=== PATIENT | female | born 1995 | race Two or more races ===

== ENCOUNTER 2019-10-20 14:30 | Inpatient (IN) | payer BC ==
[2019-10-20] MEDS ORDERED: Sodium Chloride 0.9% 10 ML Syringe FLUSH PRN (14:37)
[2019-10-20] MEDS ORDERED: Lactated Ringers 1,000 ML IV SCH (14:45)
[2019-10-20] MEDS ORDERED: Oxytocin/Lactated Ringers 10 UNIT/1,000 ML BAG IV SCH ×2 (14:45)
[2019-10-20] MEDS ORDERED: diphenhydrAMINE 50 MG/ML SDV IVPUSH PRN (15:43)
[2019-10-20] MEDS ORDERED: ePHEDrine 50 MG/ML SDV IVPUSH PRN (15:43)
[2019-10-20] MEDS ORDERED: fentaNYL 100 MCG/2 ML SDV EPIDUR PRN (15:43)
[2019-10-20] MEDS ORDERED: Bupivacaine/fentaNYL/NS 100 ML Bag EPIDUR PRN (15:43)
[2019-10-20] MEDS ORDERED: fentaNYL 100 MCG/2 ML SDV IVPUSH PRN (19:11)
--- NOTE | 2019-10-20 20:04 | PCM.LDHP ---
L&D History of Present Illness - General Date of Service: 10/20/19 Admit Problem/Dx: Patient Status Order with Admit Dx/Problem 10/20/19 14:38 Patient Status [ADT] Routine Admission Diagnosis/Problem Admission Diagnosis/Problem Source of Information: Patient History Limitations: Reports: No Limitations - History of Present Illness Introduction:: 24 year old here from clinic where she had SROM on the chux during visit before cervical check. PNC with myself complicated by thyroid dysfunction. Pain Score: 10 - Related Data Allergies/Adverse Reactions: Allergies Allergy/AdvReac Type Severity Reaction Status Date / Time No Known Allergies Allergy Verified 10/20/19 14:37 Past Medical History [employer]ER History: Reports: Endocrine/Metabolic History: Reports: Hypothyroidism Social & Family History - Family History Family Medical History: Noncontributory - Tobacco Use Smoking Status *Q: Never Smoker Second Hand Smoke Exposure: No - Recreational Drug Use Recreational Drug Use: No H&P Review of Systems - Review of Systems: Review Of Systems: See Below General: Reports: No Symptoms HEENT: Reports: No Symptoms Pulmonary: Reports: No Symptoms Cardiovascular: Reports: No Symptoms Gastrointestinal: Reports: No Symptoms Genitourinary: Reports: No Symptoms Musculoskeletal: Reports: No Symptoms Skin: Reports: No Symptoms Psychiatric: Reports: No Symptoms Neurological: Reports: No Symptoms Hematologic/Lymphatic: Reports: No Symptoms Immunologic: Reports: No Symptoms L&D Exam - Exam Exam: See Below - Vital Signs Vital Signs: Last Vital Signs Temp 36.8 C 10/20/19 14:37 Pulse Resp 16 10/20/19 14:37 BP 116/78 10/20/19 14:37 Pulse Ox 100 10/20/19 14:37 Weight: 62.868 kg - OB Specific Contraction Intensity: Strong Movement: Active Heart Rate (FHR) Variability: Moderate (6-25 bmp) Presentation: Vertex - Williamson Score Williamson Score Cervix Position: Anterior Williamson Score Effacement: >80% Williamson Score Dilation: 3-4 cm Williamson Score Infant's Station: -2 - Exam General: Alert, Oriented HEENT: PERRLA, Conjunctiva Clear, EACs Clear, EOMI, Hearing Intact, Mucosa Moist & [place], Nares Patent, Normal Nasal Septum, Posterior Pharynx Clear, TMs Clear Neck: Supple, Trachea Midline Lungs: Clear to Auscultation, Normal Respiratory Effort Cardiovascular: Regular Rate, Regular Rhythm GI/Abdominal Exam: Normal Bowel Sounds, Soft, Non-Tender, No Organomegaly, No Distention, No Abnormal Bruit, No Mass, Pelvis Stable Rectal Exam: Hemorrhoids Genitourinary: Normal external exam Back Exam: Normal Inspection, Full Range of Motion Extremities: Normal Inspection, Normal Range of Motion, Non-Tender, No Pedal Edema, Normal Capillary Refill Skin: Warm, Dry, Intact Neurological: Cranial Nerves Intact, Reflexes Equal Bilateral Psychiatric: Alert, Normal Affect, Normal Mood - Patient Data Lab Results Last 24 hrs: Laboratory Results - last 24 hr 10/20/19 Range/Units 15:20 WBC 9.33 (3.98-10.04) K/mm3 RBC 3.95 L (3.98-5.22) M/mm3 Hgb 11.2 (11.2-15.7) gm/dl Hct 35.7 (34.1-44.9) % MCV 90.4 (79.4-94.8) fl MCH 28.4 (25.6-32.2) pg MCHC 31.4 L (32.2-35.5) g/dl RDW Std Deviation 42.8 (36.4-46.3) fL Plt Count 163 L (182-369) K/mm3 MPV 12.0 (9.4-12.3) fl Neut % (Auto) 69.2 (34.0-71.1) % Lymph % (Auto) 23.4 (19.3-51.7) % [place] % (Auto) 5.8 (4.7-12.5) % Eos % (Auto) 0.4 L (0.7-5.8) Baso % (Auto) 0.4 (0.1-1.2) % Neut # (Auto) 6.46 H (1.56-6.13) K/mm3 Lymph # (Auto) 2.18 (1.18-3.74) K/mm3 [place] # (Auto) 0.54 H (0.24-0.36) K/mm3 Eos # (Auto) 0.04 (0.04-0.36) K/mm3 Baso # (Auto) 0.04 (0.01-0.08) K/mm3 Result Diagrams: 10/20/19 15:20 Problem List Initiated/Reviewed/Updated: Yes Orders Last 24hrs: Active Orders 24 hr Category Date Time Status Patient Status [ADT] Routine ADT 10/20/19 14:38 Active Activity as Tolerated [RC] PFP Care 10/20/19 14:37 Active Communication Order [RC] ASDIRECTED Care 10/20/19 14:37 Active Communication Order [RC] ASDIRECTED Care 10/20/19 15:43 Active Cooling Warming Measures [RC] ASDIRECTED Care 10/20/19 15:43 Active Heart Tones [RC] ASDIRECTED Care 10/20/19 14:38 Active Non Stress Test [RC] PER UNIT ROUTINE Care 10/20/19 14:37 Active Notify Provider [RC] ASDIRECTED Care 10/20/19 15:43 Active Notify Provider [RC] PFP Care 10/20/19 14:37 Active Notify Provider [RC] PRN Care 10/20/19 14:37 Active Oxygen Therapy [RC] ASDIRECTED Care 10/20/19 15:43 Active Peripheral IV Care [RC] . DIRECTED Care 10/20/19 14:38 Active Pulse Oximetry [RC] ASDIRECTED Care 10/20/19 15:43 Active Vital Signs [RC] PER UNIT ROUTINE Care 10/20/19 14:37 Active Vital Signs [RC] PRN Care 10/20/19 15:43 Active Regular Diet [DIET] Diet 10/20/19 Dinner Active BLOOD BANK HOLD SPECIMEN [BBK] Stat Lab 10/20/19 14:37 Ordered RAPID PLASMA REAGIN,RPR [CHEM] Routine Lab 10/20/19 15:20 Received Bupivacaine/fentaNYL/NS [fentaNYL/Bupivacaine/NS 2 MCG- Med 10/20/19 15:43 Active 0.125% 100 ML] 100 ml EPIDUR CONTINUOUS PRN Lactated Ringers [Ringers, Lactated] 1,000 ml Med 10/20/19 14:45 Active IV ASDIRECTED Oxytocin/Lactated Ringers [Pitocin in LR 10 Units/1,000 Med 10/20/19 14:45 Active ML] 10 unit in 1,000 ml IV .CONTINUOUS Oxytocin/Lactated Ringers [Pitocin in LR 10 Units/1,000 Med 10/20/19 14:45 Active ML] 10 unit in 1,000 ml IV TITRATE Sodium Chloride 0.9% [Saline Flush] Med 10/20/19 14:37 Active 10 ml FLUSH ASDIRECTED PRN diphenhydrAMINE [Benadryl] Med 10/20/19 15:43 Active 25 mg IVPUSH Q6H PRN ePHEDrine [ePHEDrine sulfate] Med 10/20/19 15:43 Active 5 mg IVPUSH ASDIRECTED PRN fentaNYL [Sublimaze] Med 10/20/19 15:43 Active 100 mcg EPIDUR Q3H PRN fentaNYL [Sublimaze] Med 10/20/19 19:11 Active 50 mcg IVPUSH Q2H PRN Electronic Heart Tones Ext w TOCO [WOMSER] Oth 10/20/19 14:37 Ordered Routine Electronic Heart Tones Internal [WOMSER] Per Unit Oth 10/20/19 14:37 Ordered Routine Peripheral IV Insertion Adult [OM.PC] Routine Oth 10/20/19 14:37 Ordered Resuscitation Status Routine Resus Stat 10/20/19 14:37 Ordered Medication Orders Diphenhydramine HCl (Benadryl) 25 mg IVPUSH Q6H PRN PRN Reason: Itching Ephedrine Sulfate (Ephedrine Sulfate) 5 mg IVPUSH ASDIRECTED PRN PRN Reason: HYPOTENTSION Fentanyl (Sublimaze) 100 mcg EPIDUR Q3H PRN PRN Reason: Pain Fentanyl (Sublimaze) 50 mcg IVPUSH Q2H PRN PRN Reason: Pain Last Admin: 10/20/19 19:22 Dose: 50 mcg Fentanyl/Bupivacaine HCl (Fentanyl/Bupivacaine/Ns 2 Mcg-0.125% 100 Ml) 100 ml EPIDUR CONTINUOUS PRN PRN Reason: Pain Lactated Ringer's (Ringers, Lactated) 1,000 mls @ 100 mls/hr IV ASDIRECTED NURYS Last Admin: 10/20/19 17:16 Dose: 100 mls/hr Oxytocin/Lactated Ringer's (Pitocin In Lr 10 Units/1,000 Ml) 10 unit in 1,000 mls @ 12 mls/hr IV TITRATE NURYS; Protocol Last Titration: 10/20/19 19:40 Dose: 500 mls/hr Admin: 10/20/19 17:16 Dose: 2 munits/min, 12 mls/hr Oxytocin/Lactated Ringer's (Pitocin In Lr 10 Units/1,000 Ml) 10 unit in 1,000 mls @ 100 mls/hr IV .CONTINUOUS NURYS Sodium Chloride (Saline Flush) 10 ml FLUSH ASDIRECTED PRN PRN Reason: Keep Vein Open Assessment/Plan Comment:: Term SROM Desires unmedicated. Anticipate
--- NOTE | 2019-10-20 20:07 | PCM.SN ---
- Free Text/Narrative Note: Stage I - Patient presented with SROM. 4 cm. Then requested pain medication. Found to be complete less than 10 minutes later. I was called at 1939 and baby born at 1938. 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 I arrived at 1946. Cord blood collected. Stage III - of intact placenta. 3vc. No laceration. EBL 100.
[2019-10-20] MEDS ORDERED: Docusate Sodium 100 MG Cap PO PRN (20:14)
[2019-10-20] MEDS ORDERED: Witch Hazel Medicated Pads 40/Jar TOP PRN (20:14)
[2019-10-20] MEDS ORDERED: Hydrocortisone Acetate 25 MG Supp RECTAL PRN (20:14)
[2019-10-20] MEDS ORDERED: Ketorolac 30 MG/ML SDV IVPUSH ONE (20:16)
[2019-10-20] MEDS: Ibuprofen 600 MG Tab PO PRN (21:02)
[2019-10-21] MEDS ORDERED: Ketorolac 30 MG/ML SDV ONE (03:06)
[2019-10-21] MEDS ORDERED: Acetaminophen 325 MG Tab PO PRN (05:37)
--- NOTE | 2019-10-21 09:08 | PCM.DCSUM1 ---
Discharge Summary - Hospital Course Diagnosis: Stroke: No - Discharge Data Discharge Date: 10/21/19 Discharge Disposition: Home, Self-Care 01 Condition: Good - Referral to Home Health Primary Care Physician: Gayle Rocha MD - Patient Summary/Data Hospital Course: Rapid , unremarkable course - Patient Instructions Diet: Usual Diet as Tolerated Activity: No Strenuous Activities Driving: May Drive Today Showering/Bathing: May Shower Notify Provider of: Fever, Increased Pain, Swelling and Redness, Drainage, Nausea and/or Vomiting - Discharge Plan *PRESCRIPTION DRUG MONITORING PROGRAM REVIEWED*: No *COPY OF PRESCRIPTION DRUG MONITORING REPORT IN PATIENT JOE: No Referrals: Gayle Rocha MD [Primary Care Provider] - (2 weeks) - Discharge Summary/Plan Comment DC Time >30 min.: No - General Info Date of Service: 10/21/19 Functional Status: Reports: Pain Controlled - Review of Systems General: Reports: No Symptoms HEENT: Reports: No Symptoms Pulmonary: Reports: No Symptoms Cardiovascular: Reports: No Symptoms Gastrointestinal: Reports: No Symptoms Genitourinary: Reports: No Symptoms Musculoskeletal: Reports: No Symptoms Skin: Reports: No Symptoms Neurological: Reports: No Symptoms Psychiatric: Reports: No Symptoms - Patient Data Vitals - Most Recent: Last Vital Signs Temp 36.8 C 10/20/19 14:37 Pulse 76 10/21/19 03:10 Resp 16 10/21/19 03:10 BP 99/60 10/21/19 03:10 Pulse Ox 98 10/21/19 03:10 Weight - Most Recent: 62.868 kg I&O - Last 24 hours: Intake & Output 10/20/19 10/21/19 10/21/19 22:59 06:59 14:59 Intake Total 1500 Balance 1500 Lab Results - Last 24 hrs: Laboratory Results - last 24 hr 10/20/19 10/20/19 Range/Units 15:20 15:20 WBC 9.33 (3.98-10.04) K/mm3 RBC 3.95 L (3.98-5.22) M/mm3 Hgb 11.2 (11.2-15.7) gm/dl Hct 35.7 (34.1-44.9) % MCV 90.4 (79.4-94.8) fl MCH 28.4 (25.6-32.2) pg MCHC 31.4 L (32.2-35.5) g/dl RDW Std Deviation 42.8 (36.4-46.3) fL Plt Count 163 L (182-369) K/mm3 MPV 12.0 (9.4-12.3) fl Neut % (Auto) 69.2 (34.0-71.1) % Lymph % (Auto) 23.4 (19.3-51.7) % [place] % (Auto) 5.8 (4.7-12.5) % Eos % (Auto) 0.4 L (0.7-5.8) Baso % (Auto) 0.4 (0.1-1.2) % Neut # (Auto) 6.46 H (1.56-6.13) K/mm3 Lymph # (Auto) 2.18 (1.18-3.74) K/mm3 [place] # (Auto) 0.54 H (0.24-0.36) K/mm3 Eos # (Auto) 0.04 (0.04-0.36) K/mm3 Baso # (Auto) 0.04 (0.01-0.08) K/mm3 RPR Non-reactive (NONREACTIVE) Med Orders - Current: Current Medications Acetaminophen (Tylenol) 650 mg PO Q6H PRN PRN Reason: Pain Last Admin: 10/21/19 05:56 Dose: 650 mg Docusate Sodium (Colace) 100 mg PO BID PRN PRN Reason: Constipation Hydrocortisone Acetate (Anucort-Hc) 25 mg RECTAL BID PRN PRN Reason: Hemorrhoid pain Ibuprofen (Motrin) 600 mg PO Q6H PRN PRN Reason: Mild pain or fever Last Admin: 10/20/19 21:02 Dose: 600 mg [place] (Tucks) 1 pad TOP ASDIRECTED PRN PRN Reason: Pain Discontinued Medications Diphenhydramine HCl (Benadryl) 25 mg IVPUSH Q6H PRN PRN Reason: Itching Ephedrine Sulfate (Ephedrine Sulfate) 5 mg IVPUSH ASDIRECTED PRN PRN Reason: HYPOTENTSION Fentanyl (Sublimaze) 100 mcg EPIDUR Q3H PRN PRN Reason: Pain Fentanyl (Sublimaze) 50 mcg IVPUSH Q2H PRN PRN Reason: Pain Last Admin: 10/20/19 19:22 Dose: 50 mcg Fentanyl/Bupivacaine HCl (Fentanyl/Bupivacaine/Ns 2 Mcg-0.125% 100 Ml) 100 ml EPIDUR CONTINUOUS PRN PRN Reason: Pain Lactated Ringer's (Ringers, Lactated) 1,000 mls @ 100 mls/hr IV ASDIRECTED NURYS Last Admin: 10/20/19 17:16 Dose: 100 mls/hr Oxytocin/Lactated Ringer's (Pitocin In Lr 10 Units/1,000 Ml) 10 unit in 1,000 mls @ 12 mls/hr IV TITRATE NURYS; Protocol Last Titration: 10/20/19 19:40 Dose: 500 mls/hr Oxytocin/Lactated Ringer's (Pitocin In Lr 10 Units/1,000 Ml) 10 unit in 1,000 mls @ 100 mls/hr IV .CONTINUOUS NURYS Ketorolac Tromethamine (Toradol) 30 mg IVPUSH ONETIME ONE Stop: 10/20/19 20:17 Last Admin: 10/21/19 03:11 Dose: 30 mg Ketorolac Tromethamine (Toradol) Confirm Administered Dose 30 mg .ROUTE .STK- MED ONE Stop: 10/21/19 03:07 Last Admin: 10/21/19 04:52 Dose: Not Given Sodium Chloride (Saline Flush) 10 ml FLUSH ASDIRECTED PRN PRN Reason: Keep Vein Open - Exam General: Reports: Alert, Oriented HEENT: Reports: Pupils Equal, Pupils Reactive, EOMI, Mucous Membr. Moist/[place] Neck: Reports: Supple Lungs: Reports: Clear to Auscultation, Normal Respiratory Effort Cardiovascular: Reports: Regular Rate, Regular Rhythm GI/Abdominal Exam: Normal Bowel Sounds, Soft, Non-Tender, No Organomegaly, No Distention, No Abnormal Bruit, No Mass, Pelvis Stable Rectal (Female) Exam: Normal Exam, Normal Rectal Tone Back Exam: Reports: Normal Inspection, Full Range of Motion Extremities: Normal Inspection, Normal Range of Motion, Non-Tender, No Pedal Edema, Normal Capillary Refill Skin: Reports: Warm, Dry, Intact Wound/Incisions: Reports: Healing Well Neurological: Reports: No New Focal Deficit Psy/Mental Status: Reports: Alert, Normal Affect, Normal Mood
[2019-10-21] MEDS: Ibuprofen 600 MG Tab PO PRN ×2 (11:34→18:05)
== END 2019-10-21 21:25 | disposition home or self-care (01) | DRG 560 ==
LOC: JD.OB 14:30 → JD.OBCHECK 14:30 → JD.OB 14:38 → OBSVTOIN 19:39 → JD.OB 19:40
PROVIDERS: ADMIT Obstetrics & Gynecology; ATTEND Obstetrics & Gynecology
PROC: 10E0XZZ Delivery of Products of Conception, External Approach (ICD-10-PCS; principal; 2019-10-20)
DX: O80 Encounter for full-term uncomplicated delivery (principal); Z37.0 Single live birth; Z3A.38 38 weeks gestation of pregnancy
CPT/HCPCS: 36415; 59025; 59409; 85025; 86592; A9270-GY; J1885; J2590; J3010; J7120

== ENCOUNTER 2021-05-25 08:02 | Inpatient (IN) | payer BC, MEDICAID ==
[2021-05-25] MEDS ORDERED: Lidocaine 1% 50 ML MDV INJECT ONE (08:12)
[2021-05-25] MEDS ORDERED: Nalbuphine 10 MG/1 ML Vial IVPUSH PRN (08:12)
[2021-05-25] MEDS ORDERED: Sodium Chloride 0.9% 10 ML Syringe FLUSH PRN (08:12)
[2021-05-25] MEDS ORDERED: Ondansetron 4 MG/2 ML SDV IVPUSH PRN (08:12)
[2021-05-25] MEDS ORDERED: Oxytocin/Lactated Ringers 10 UNIT/1,000 ML BAG IV SCH ×2 (08:15→14:30)
[2021-05-25] MEDS: Lactated Ringers 1,000 ML IV SCH ×2 (08:35→09:21)
--- NOTE | 2021-05-25 09:26 | PCM.LDHP ---
L&D History of Present Illness - General Date of Service: 05/25/21 Admit Problem/Dx: Patient Status Order with Admit Dx/Problem 05/25/21 08:16 Patient Status [ADT] Routine Admission Diagnosis/Problem Admission Diagnosis/Problem Labor established 05/25/21 09:20 Rosa is a 26-year-old 6 para 5-0-0-5 female at the 8-0/7 weeks gestational age with an CHARLES of 06/08/2021 admitted on the a.m. of 05/25/2021 in active labor with progressive and advanced cervical dilation to 5 cm. Source of Information: Patient History Limitations: Reports: No Limitations - History of Present Illness Introduction:: Rosa is a 26-year-old 6 para 5-0-0-5 female at the 8-0/7 weeks gestational age with an CHARLES of 06/08/2021 admitted on the a.m. of 05/25/2021 in active labor with progressive and advanced cervical dilation to 5 cm. Contractions started within the last 12 hours. They have progressed steadily. Membranes are intact. Baby's been active. heart tones are reassuring. 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 5 vaginal livers previously. All deliveries have been near term. Largest baby was 7 pounds 2 ounces. No problems with previous pregnancies other than precipitous deliveries. Physician is only been present at one of her previous 5 deliveries. course relatively unremarkable. Patient was seen at 5-5/7 weeks gestational age. She was seen on a regular basis. Weight gain was from 138 to 145 pounds. Fundal height growth was appropriate. otherwise unremarkable markable. Laboratory testing : Blood is a positive with a negative MT screen. First hemoglobin was 13.7. Platelets were 173,000. Her rubella titer showed immunity. Her RPR was nonreactive. Hepatitis B surface antigen and HIV assays were both negative. Hepatitis C antibody assay was nonreactive. Chlamydia and gonorrhea were not detected. TSH done on the 03/14/2021 was within normal limits at 0.55 mcg/mL. Patient is on levothyroxine at a dosage of 100 mcg p.o. daily. She is clinically euthyroid. Pap smear was unremarkable. 1 hour GTT second trimester was 85. Hemoglobin second trimester was 12.1 g/dL and platelets are 150,000. Recheck of platelets on 03/01/2021 showed a level of 140,000. Her group B strep screen was negative. Allergies: None Medications: 1. Levothyroxine 100 mcg p.o. daily 2. Docusate sodium 100 mg p.o. per day as needed for constipation 3. vitamins 1 p.o. daily. Past medical history: 1. x5 as above 2. Hypothyroidism on medication Past surgical history: Unremarkable Social history patient is . is Jacob coyne. They live in [place], [place]. She denies any significance alcohol, drugs or tobacco. Review of systems: In general patient has no complaints other than active labor and progressively increasing intensity of contractions. Baby has been active. Skin: Negative Lungs: No infectious symptoms or shortness of breath Cardiovascular: No chest pain or exercise intolerance Breasts: No lumps, changes in size, pain, dimpling, discharge or axillary or supraclavicular concerns. GI: Negative : Per HPI. Musculoskeletal: Negative Neurological: Negative In general the patient is well-developed, well-nourished, pleasant female of stated age in no acute distress. Skin is warm dry without lesions. HEENT, neck and back within normal limits. Lungs are clear with good breath sounds in all lung rene. Cardiovascular exam shows regular and rhythm without murmurs. Breast exam deferred. Abdomen is gravid with fundal height consistent with dates. Genital per digital exam done by nursing staff most recently shows 6 cm dilation, bulging bag of diane, vertex presentation.. Extremities and neurological exam are grossly within normal limits. 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: Endocrine/Metabolic History: Reports: Hypothyroidism Social & Family History - Family History Family Medical History: No Pertinent Family History H&P Review of Systems - Review of Systems: Review Of Systems: See Below L&D Exam - Exam Exam: See Below - Vital Signs Weight: 65.771 kg - Patient Data Lab Results Last 24 hrs: Laboratory Results - last 24 hr 05/25/21 Range/Units 08:12 WBC 8.92 (3.98-10.04) K/mm3 RBC 3.97 L (3.98-5.22) M/mm3 Hgb 11.9 (11.2-15.7) gm/dl Hct 36.8 (34.1-44.9) % MCV 92.7 (79.4-94.8) fl MCH 30.0 (25.6-32.2) pg MCHC 32.3 (32.2-35.5) g/dl RDW Std Deviation 44.7 (36.4-46.3) fL Plt Count 128 L (182-369) K/mm3 MPV 12.8 H (9.4-12.3) fl Neut % (Auto) 69.7 (34.0-71.1) % Lymph % (Auto) 21.3 (19.3-51.7) % [place] % (Auto) 6.6 (4.7-12.5) % Eos % (Auto) 0.8 (0.7-5.8) Baso % (Auto) 0.3 (0.1-1.2) % Neut # (Auto) 6.21 H (1.56-6.13) K/mm3 Lymph # (Auto) 1.90 (1.18-3.74) K/mm3 [place] # (Auto) 0.59 H (0.24-0.36) K/mm3 Eos # (Auto) 0.07 (0.04-0.36) K/mm3 Baso # (Auto) 0.03 (0.01-0.08) K/mm3 Result Diagrams: 05/25/21 08:12 - Problem List (1) 38 weeks gestation of SNOMED Code(s): 06398961 ICD Code: Z3A.38 - 38 WEEKS GESTATION OF Status: Acute Current Visit: Yes (2) Precipitous delivery SNOMED Code(s): 470669145, 376854950 ICD Code: O62.3 - PRECIPITATE LABOR Status: Acute Current Visit: Yes (3) Active labor SNOMED Code(s): 621154218 ICD Code: [id number] - Status: Acute Current Visit: Yes Problem List Initiated/Reviewed/Updated: Yes Orders Last 24hrs: Active Orders 24 hr Category Date Time Status Patient Status [ADT] Routine ADT 05/25/21 08:16 Active Activity as Tolerated [RC] PFP Care 05/25/21 08:16 Active Communication Order [RC] ASDIRECTED Care 05/25/21 08:16 Active Heart Tones [RC] ASDIRECTED Care 05/25/21 08:16 Active Non Stress Test [RC] PER UNIT ROUTINE Care 05/25/21 08:16 Active Notify Provider [RC] PFP Care 05/25/21 08:16 Active Notify Provider [RC] PRN Care 05/25/21 08:16 Active Peripheral IV Care [RC] . DIRECTED Care 05/25/21 08:16 Active Vital Signs [RC] PER UNIT ROUTINE Care 05/25/21 08:16 Active Regular Diet [DIET] Diet 05/25/21 Breakfast Active CORONAVIRUS COVID-19 KYE [MOLEC] Stat Lab 05/25/21 08:22 Received RAPID PLASMA REAGIN,RPR [CHEM] Routine Lab 05/25/21 08:45 Received TYPE AND SCREEN [BBK] Stat Lab 05/25/21 08:45 Received Lactated Ringers [Ringers, Lactated] 1,000 ml Med 05/25/21 08:15 Active IV ASDIRECTED Nalbuphine [Nubain] Med 05/25/21 08:12 Active 10 mg IVPUSH Q2H PRN Ondansetron [Zofran] Med 05/25/21 08:12 Active 4 mg IVPUSH Q4H PRN Oxytocin/Lactated Ringers [Pitocin in LR 10 Units/1,000 Med 05/25/21 08:15 Active ML] 10 unit in 1,000 ml IV .CONTINUOUS Sodium Chloride 0.9% [Saline Flush] Med 05/25/21 08:12 Active 10 ml FLUSH ASDIRECTED PRN Electronic Heart Tones Ext w TOCO [WOMSER] Oth 05/25/21 08:16 Ordered Routine Electronic Heart Tones Internal [WOMSER] Per Unit Oth 05/25/21 08:16 Ordered Routine Peripheral IV Insertion Adult [OM.PC] Routine Oth 05/25/21 08:16 Ordered Resuscitation Status Routine Resus Stat 05/25/21 08:12 Ordered Medication Orders Oxytocin/Lactated Ringer's (Pitocin In Lr 10 Units/1,000 Ml) 10 unit in 1,000 mls @ 500 mls/hr IV .CONTINUOUS NURYS Lactated Ringer's (Ringers, Lactated) 1,000 mls @ 100 mls/hr IV ASDIRECTED NURYS Last Admin: 05/25/21 08:35 Dose: 100 mls/hr Documented by: SOFIA Nalbuphine HCl (Nalbuphine 10 Mg/1 Ml Vial) 10 mg IVPUSH Q2H PRN PRN Reason: Pain Ondansetron HCl (Ondansetron 4 Mg/2 Ml Sdv) 4 mg IVPUSH Q4H PRN PRN Reason: Nausea/Vomiting Sodium Chloride (Sodium Chloride 0.9% 10 Ml Syringe) 10 ml FLUSH ASDIRECTED PRN PRN Reason: Keep Vein Open Assessment/Plan Comment:: 1. Rosa is a 26-year-old 6 para 5-0-0-5 female at the 8-0/7 weeks gestational age with an CHARLES of 06/08/2021 admitted on the a.m. of 05/25/2021 in active labor with progressive and advanced cervical dilation to 5 cm. 2. Group B strep negative 3. Patient desires epidural 4. Patient plans to breast-feed 5. Relatively unremarkable course, no significant risk factors noted. Plan: 1. Epidural for labor analgesia 2. Anticipate 3. Routine admission labor delivery labs consist of COVID-19, RPR and CBC. 4. Support breast-feeding decision.
[2021-05-25] MEDS ORDERED: fentaNYL 100 MCG/2 ML SDV EPIDUR PRN (09:46)
[2021-05-25] MEDS ORDERED: ePHEDrine 50 MG/ML SDV IVPUSH PRN (09:46)
[2021-05-25] MEDS ORDERED: Bupivacaine/fentaNYL/NS 100 ML Bag EPIDUR PRN (09:46)
[2021-05-25] MEDS ORDERED: diphenhydrAMINE 50 MG/ML SDV IVPUSH PRN (09:46)
--- NOTE | 2021-05-25 09:51 | PCM.PREANE ---
Preanesthetic Assessment - Procedure Proposed Procedure: Labor epidural - Anesthesia/Transfusion/Family Hx Anesthesia History: No Prior Anesthesia Family History of Anesthesia Reaction: No Transfusion History: No Prior Transfusion(s) Intubation History: Unknown - Review of Systems General: No Symptoms Pulmonary: No Symptoms Cardiovascular: No Symptoms Gastrointestinal: Abdominal Pain (uterine pain) Neurological: No Symptoms Other: Reports: Thyroid Problems - Physical Assessment NPO Status Date: 05/24/21 NPO Status Time: 22:00 Vital Signs: BP 118/86 RR 18 HR 95 98.3 100% Height: 1.55 m Weight: 65.771 kg ASA Class: 2 Mental Status: Alert & Oriented x3 Dentition: Reports: Normal Dentition Thyro-Mental Finger Breadths: 3 Mouth Opening Finger Breadths: 3 Lungs: Clear to Auscultation, Normal Respiratory Effort Cardiovascular: Regular Rate, Regular Rhythm, No Murmurs - Lab Values: Laboratory Last Values WBC 8.92 K/mm3 (3.98-10.04) 05/25/21 08:12 RBC 3.97 M/mm3 (3.98-5.22) L 05/25/21 08:12 Hgb 11.9 gm/dl (11.2-15.7) 05/25/21 08:12 Hct 36.8 % (34.1-44.9) 05/25/21 08:12 MCV 92.7 fl (79.4-94.8) 05/25/21 08:12 MCH 30.0 pg (25.6-32.2) 05/25/21 08:12 MCHC 32.3 g/dl (32.2-35.5) 05/25/21 08:12 RDW Std Deviation 44.7 fL (36.4-46.3) 05/25/21 08:12 Plt Count 128 K/mm3 (182-369) L 05/25/21 08:12 MPV 12.8 fl (9.4-12.3) H 05/25/21 08:12 Neut % (Auto) 69.7 % (34.0-71.1) 05/25/21 08:12 Lymph % (Auto) 21.3 % (19.3-51.7) 05/25/21 08:12 [place] % (Auto) 6.6 % (4.7-12.5) 05/25/21 08:12 Eos % (Auto) 0.8 (0.7-5.8) 05/25/21 08:12 Baso % (Auto) 0.3 % (0.1-1.2) 05/25/21 08:12 Neut # (Auto) 6.21 K/mm3 (1.56-6.13) H 05/25/21 08:12 Lymph # (Auto) 1.90 K/mm3 (1.18-3.74) 05/25/21 08:12 [place] # (Auto) 0.59 K/mm3 (0.24-0.36) H 05/25/21 08:12 Eos # (Auto) 0.07 K/mm3 (0.04-0.36) 05/25/21 08:12 Baso # (Auto) 0.03 K/mm3 (0.01-0.08) 05/25/21 08:12 SARS-CoV-2 RNA (KYE) Negative (NEGATIVE) 05/25/21 08:22 - Allergies Allergies/Adverse Reactions: Allergies Allergy/AdvReac Type Severity Reaction Status Date / Time No Known Allergies Allergy Verified 10/20/19 14:37 - Blood Blood Available: No Product(s) Available: None - Acknowledgements Anesthesia Type Planned: Epidural Pt an Appropriate Candidate for the Planned Anesthesia: Yes Alternatives and Risks of Anesthesia Discussed w Pt/Guardian: Yes Pt/Guardian Understands and Agrees with Anesthesia Plan: Yes PreAnesthesia Questionnaire Cardiovascular History: Reports: None Respiratory History: Reports: None Gastrointestinal History: Reports: None Genitourinary History: Reports: None MANAGER CARDIOLOGY History: Reports: Musculoskeletal History: Reports: None Neurological History: Reports: None Psychiatric History: Reports: None Endocrine/Metabolic History: Reports: Hypothyroidism Hematologic History: Reports: None Immunologic History: Reports: None Oncologic (Cancer) History: Reports: None Dermatologic History: Reports: None - SUBSTANCE USE Tobacco Use Status *Q: Never Tobacco User Tobacco Use Within Last Twelve Months: No Second Hand Smoke Exposure: No Days Per Week of Alcohol Use: 0 Number of Drinks Per Day: 0 Total Drinks Per Week: 0 Recreational Drug Use History: No - HOME MEDS Home Medications: Home Meds Acetaminophen [Tylenol] 650 mg PO Q6H PRN tablet 10/21/19 [Rx] Levothyroxine [Synthroid] 100 mcg PO ACBREAKFAST 05/14/21 [History] Pnv #30/Iron Carb&Aspg/Fa/Om3 [OB Complete with DHA Softgel] 1 each PO DAILY 05/14/21 [History] - CURRENT (IN HOUSE) MEDS Current Meds: Current Medications Oxytocin/Lactated Ringer's (Pitocin In Lr 10 Units/1,000 Ml) 10 unit in 1,000 mls @ 500 mls/hr IV .CONTINUOUS NURYS Lactated Ringer's (Ringers, Lactated) 1,000 mls @ 100 mls/hr IV ASDIRECTED NURYS Last Admin: 05/25/21 08:35 Dose: 100 mls/hr Documented by: Nalbuphine HCl (Nalbuphine 10 Mg/1 Ml Vial) 10 mg IVPUSH Q2H PRN PRN Reason: Pain Ondansetron HCl (Ondansetron 4 Mg/2 Ml Sdv) 4 mg IVPUSH Q4H PRN PRN Reason: Nausea/Vomiting Sodium Chloride (Sodium Chloride 0.9% 10 Ml Syringe) 10 ml FLUSH ASDIRECTED PRN PRN Reason: Keep Vein Open Discontinued Medications Lidocaine HCl (Lidocaine 1% 50 Ml Mdv) 50 ml INJECT ONETIME ONE Stop: 05/25/21 08:13
[2021-05-25] MEDS ORDERED: Bupivacaine 0.25% 10 ML SDV ONE (16:00)
[2021-05-25] MEDS ORDERED: Ibuprofen 600 MG Tab PO PRN (16:22)
[2021-05-25] MEDS ORDERED: Acetaminophen 325 MG Tab PO PRN (19:37)
[2021-05-25] MEDS ORDERED: Witch Hazel Medicated Pads 40/Jar TOP PRN (19:37)
[2021-05-25] MEDS ORDERED: Benzocaine/Menthol 20%-0.5% Spray 78 GM Cannister TOP PRN (19:37)
[2021-05-25] MEDS ORDERED: Docusate Sodium 100 MG Cap PO PRN (19:37)
[2021-05-25] MEDS: Ibuprofen 600 MG Tab PO PRN (19:45)
--- NOTE | 2021-05-25 23:10 | PCM.SN.2 ---
- Free Text/Narrative Note: Delivery note: Stage I: Rosa is a 26-year-old 6 para 5-0-0-5 female admitted at 38-0/7 weeks gestational age with an CHARLES of 06/08/2021. She is admitted on the a.m. of 05/25/2021 in active labor with progressive and advanced cervical dilation. She desired an epidural and after epidural was placed AROM was undertaken with resultant clear amniotic fluid. Patient had a history of precipitous deliveries. She however took approximately 3 hours to go from 5 to 6 cm up to complete cervical dilation. Epidural worked well. Vital signs are stable and heart tones were reassuring throughout the labor. Stage II: Rosa delivered a viable, garrido, male with Apgars of 8 and 9, length of 20.0 inches and a weight of 3240 g (7 pounds 2.3 ounces) at 1446 hrs. on 05/25/2021. Baby delivered in a direct occiput anterior position, or an intact perineum. After external restitution of the head the shoulders were delivered with gentle downward and upward traction. Baby was completely delivered and placed on mom's abdomen. He was dried with warm blanket and nose and mouth were bulb suction. Pitocin solution was increased to a rate of 1000 cc an hour (using the routine solution of 10 units Pitocin in a liter). This to facilitate increase in uterine tone and decrease likelihood of bleeding. Umbilical cord was allowed to pulsate x2-3 minutes then was clamped and cut by the baby's father. The umbilical cord had 3 vessels. Stage III: The placenta delivered at 1452 hrs. in a [place] presentation, appeared intact and complete and was discarded per patient desire. The perineum and vagina were intact and no suturing was required. Estimated blood loss was 100 cc. Condition: Good. Patient plans to breast-feed. Time Documentation
[2021-05-26] MEDS: Ibuprofen 600 MG Tab PO PRN ×3 (00:34→12:47)
--- NOTE | 2021-05-26 05:08 | PCM.DCSUM1 ---
Discharge Summary - Hospital Course Free Text/Narrative:: Stage I: Rosa is a 26-year-old 6 para 5-0-0-5 female admitted at 38-0/7 weeks gestational age with an CHARLES of 06/08/2021. She is admitted on the a.m. of 05/25/2021 in active labor with progressive and advanced cervical dilation. She desired an epidural and after epidural was placed AROM was undertaken with resultant clear amniotic fluid. Patient had a history of precipitous deliveries. She however took approximately 3 hours to go from 5 to 6 cm up to complete cervical dilation. Epidural worked well. Vital signs are stable and heart tones were reassuring throughout the labor. Stage II: Rosa delivered a viable, garrido, male with Apgars of 8 and 9, length of 20.0 inches and a weight of 3240 g (7 pounds 2.3 ounces) at 1446 hrs. on 05/25/2021. Baby delivered in a direct occiput anterior position, or an intact perineum. After external restitution of the head the shoulders were delivered with gentle downward and upward traction. Baby was completely delivered and placed on mom's abdomen. He was dried with warm blanket and nose and mouth were bulb suction. Pitocin solution was increased to a rate of 1000 cc an hour (using the routine solution of 10 units Pitocin in a liter). This to facilitate increase in uterine tone and decrease likelihood of bleeding. Umbilical cord was allowed to pulsate x2-3 minutes then was clamped and cut by the baby's father. The umbilical cord had 3 vessels. Stage III: The placenta delivered at 1452 hrs. in a [place] presentation, appeared intact and complete and was discarded per patient desire. The perineum and vagina were intact and no suturing was required. Estimated blood loss was 100 cc. day 1 patient is doing well. She has minimal lochia, is voiding well, vital signs are stable and she is afebrile. She is desiring discharge home. Condition: Good. Patient plans to breast-feed. Diagnosis: Stroke: No - Discharge Data Discharge Date: 05/26/21 Discharge Disposition: Home, Self-Care 01 Condition: Good - Referral to Home Health Primary Care Physician: Gayle Rocha MD - Discharge Diagnosis/Problem(s) (1) 38 weeks gestation of SNOMED Code(s): 72560311 ICD Code: Z3A.38 - 38 WEEKS GESTATION OF Status: Acute Current Visit: Yes (2) Precipitous delivery SNOMED Code(s): 993869760, 606504182 ICD Code: O62.3 - PRECIPITATE LABOR Status: Acute Current Visit: Yes (3) Active labor SNOMED Code(s): 694365842 ICD Code: [id number] - Status: Acute Current Visit: Yes - Patient Instructions Diet: Usual Diet as Tolerated, Regular Diet as Tolerated (Nursing diet with increased calories and calcium as recommended) Activity: As Tolerated (No intercourse tampons until bleeding resolves) Driving: May Drive Today Showering/Bathing: May Shower Showering/Bathing, Other: May take a bath Notify Provider of: Fever, Increased Pain, Swelling and Redness, Drainage - Discharge Plan Home Medications: Home Meds Acetaminophen [Tylenol] 650 mg PO Q6H PRN tablet 10/21/19 [Rx] Levothyroxine [Synthroid] 100 mcg PO ACBREAKFAST 05/14/21 [History] Pnv #30/Iron Carb&Aspg/Fa/Om3 [OB Complete with DHA Softgel] 1 each PO DAILY 05/14/21 [History] Acetaminophen [Tylenol] 650 mg PO Q4H PRN tablet 05/26/21 [Rx] Ibuprofen [Motrin] 600 mg PO Q4H PRN tablet 05/26/21 [Rx] Referrals: Gayle Rocha MD [Primary Care Provider] - ([facility] - Discharge Summary/Plan Comment DC Time >30 min.: No Total # of Minutes for Discharge Time: 10 Discharge Summary/Plan Comment: Discharge instructions: 1. Discharge home 2. Diet, activity and follow-up discussed with patient. Recommend nursing diet with increased calories and calcium. 3. Precautions given concern increased pain, bleeding, temperature, signs/symptoms of DVT/PE. 4. Medications per home medication was printed, discussed with and given to the patient. 5. [facility] Diagnosis: 1. Term -delivered 2. Hypothyroidism on replacementclinically euthyroid Condition: Good - Patient Data Vitals - Most Recent: Last Vital Signs Temp 36.4 C 05/26/21 04:07 Pulse 82 05/26/21 04:07 Resp 14 05/26/21 04:07 BP 106/65 05/26/21 04:07 Pulse Ox 97 05/26/21 04:07 Weight - Most Recent: 65.771 kg I&O - Last 24 hours: Intake & Output 05/25/21 05/25/21 05/26/21 14:59 22:59 06:59 Intake Total 0 Output Total 800 127 Balance -800 -127 Lab Results - Last 24 hrs: Laboratory Results - last 24 hr 05/25/21 05/25/21 05/25/21 Range/Units 08:12 08:22 08:45 WBC 8.92 (3.98-10.04) K/mm3 RBC 3.97 L (3.98-5.22) M/mm3 Hgb 11.9 (11.2-15.7) gm/dl Hct 36.8 (34.1-44.9) % MCV 92.7 (79.4-94.8) fl MCH 30.0 (25.6-32.2) pg MCHC 32.3 (32.2-35.5) g/dl RDW Std Deviation 44.7 (36.4-46.3) fL Plt Count 128 L (182-369) K/mm3 MPV 12.8 H (9.4-12.3) fl Neut % (Auto) 69.7 (34.0-71.1) % Lymph % (Auto) 21.3 (19.3-51.7) % [place] % (Auto) 6.6 (4.7-12.5) % Eos % (Auto) 0.8 (0.7-5.8) Baso % (Auto) 0.3 (0.1-1.2) % Neut # (Auto) 6.21 H (1.56-6.13) K/mm3 Lymph # (Auto) 1.90 (1.18-3.74) K/mm3 [place] # (Auto) 0.59 H (0.24-0.36) K/mm3 Eos # (Auto) 0.07 (0.04-0.36) K/mm3 Baso # (Auto) 0.03 (0.01-0.08) K/mm3 RPR (NONREACTIVE) SARS-CoV-2 RNA (KYE) Negative (NEGATIVE) Blood Type A POSITIVE Gel Antibody Screen Negative 05/25/21 Range/Units 08:45 WBC (3.98-10.04) K/mm3 RBC (3.98-5.22) M/mm3 Hgb (11.2-15.7) gm/dl Hct (34.1-44.9) % MCV (79.4-94.8) fl MCH (25.6-32.2) pg MCHC (32.2-35.5) g/dl RDW Std Deviation (36.4-46.3) fL Plt Count (182-369) K/mm3 MPV (9.4-12.3) fl Neut % (Auto) (34.0-71.1) % Lymph % (Auto) (19.3-51.7) % [place] % (Auto) (4.7-12.5) % Eos % (Auto) (0.7-5.8) Baso % (Auto) (0.1-1.2) % Neut # (Auto) (1.56-6.13) K/mm3 Lymph # (Auto) (1.18-3.74) K/mm3 [place] # (Auto) (0.24-0.36) K/mm3 Eos # (Auto) (0.04-0.36) K/mm3 Baso # (Auto) (0.01-0.08) K/mm3 RPR Non-reactive (NONREACTIVE) SARS-CoV-2 RNA (KYE) (NEGATIVE) Blood Type Gel Antibody Screen Med Orders - Current: Current Medications Acetaminophen (Acetaminophen 325 Mg Tab) 650 mg PO Q4H PRN PRN Reason: mild pain or fever Benzocaine/Menthol (Benzocaine/Menthol 20%-0.5% [place] 78 Gm Cannister) 0 gm TOP ASDIRECTED PRN PRN Reason: Perineal Comfort Measure Docusate Sodium (Docusate Sodium 100 Mg Cap) 100 mg PO BID PRN PRN Reason: Constipation Ibuprofen (Ibuprofen 600 Mg Tab) 600 mg PO Q4H PRN PRN Reason: Mild pain or fever Last Admin: 05/26/21 04:28 Dose: 600 mg Documented by: Levothyroxine Sodium (Levothyroxine 100 Mcg Tab) 100 mcg PO ACBREAKFAST NURYS Prenat Multivit/Gage/Iron/Folic Ac ( Multivitamin With Calcium/Folic Acid/Iron Tab) 1 each PO DAILY [facility] Kipcourtney Gorman (Kipcourtney Vita Medicated Pads 40/Jar) 1 pad TOP ASDIRECTED PRN PRN Reason: Perineal Comfort Measure Discontinued Medications Diphenhydramine HCl (Diphenhydramine 50 Mg/Ml Sdv) 25 mg IVPUSH Q6H PRN PRN Reason: pruritis Ephedrine Sulfate (Ephedrine 50 Mg/Ml Sdv) 5 mg IVPUSH ASDIRECTED PRN PRN Reason: Hypotension Fentanyl (Fentanyl 100 Mcg/2 Ml Sdv) 100 mcg EPIDUR Q3H PRN PRN Reason: Pain Last Admin: 05/25/21 09:52 Dose: 100 mcg Documented by: Fentanyl/Bupivacaine HCl (Bupivacaine/Fentanyl/Ns 100 Ml Bag) 100 ml EPIDUR ASDIRECTED PRN PRN Reason: Pain Last Admin: 05/25/21 09:53 Dose: 100 ml Documented by: Oxytocin/Lactated Ringer's (Pitocin In Lr 10 Units/1,000 Ml) 10 unit in 1,000 mls @ 500 mls/hr IV .CONTINUOUS NURYS Lactated Ringer's (Ringers, Lactated) 1,000 mls @ 100 mls/hr IV ASDIRECTED NURYS Last Admin: 05/25/21 09:21 Dose: 100 mls/hr Documented by: Oxytocin/Lactated Ringer's (Pitocin In Lr 10 Units/1,000 Ml) 10 unit in 1,000 mls @ 12 mls/hr IV TITRATE NURYS; Protocol Last Admin: 05/25/21 14:27 Dose: 2 munits/min, 12 mls/hr Documented by: Ibuprofen (Ibuprofen 600 Mg Tab) 600 mg PO Q6H PRN PRN Reason: Pain Last Admin: 05/25/21 15:22 Dose: 600 mg Documented by: Lidocaine HCl (Lidocaine 1% 50 Ml Mdv) 50 ml INJECT ONETIME ONE Stop: 05/25/21 08:13 Nalbuphine HCl (Nalbuphine 10 Mg/1 Ml Vial) 10 mg IVPUSH Q2H PRN PRN Reason: Pain Ondansetron HCl (Ondansetron 4 Mg/2 Ml Sdv) 4 mg IVPUSH Q4H PRN PRN Reason: Nausea/Vomiting Sodium Chloride (Sodium Chloride 0.9% 10 Ml Syringe) 10 ml FLUSH ASDIRECTED PRN PRN Reason: Keep Vein Open
[2021-05-26] MEDS ORDERED: Levothyroxine 100 MCG Tab PO SCH (06:00)
--- NOTE | 2021-05-26 07:41 | PCM48HPAN ---
Post Anesthesia Note - EVALUATION WITHIN 48HRS OF ANESTHETIC Vital Signs in Normal Range: Yes Patient Participated in Evaluation: Yes Respiratory Function Stable: Yes Airway Patent: Yes Cardiovascular Function Stable: Yes Hydration Status Stable: Yes Pain Control Satisfactory: Yes Nausea and Vomiting Control Satisfactory: Yes Mental Status Recovered: Yes Vital Signs: Last Vital Signs Temp 97.5 F 05/26/21 04:07 Pulse 82 05/26/21 04:07 Resp 14 05/26/21 04:07 BP 106/65 05/26/21 04:07 Pulse Ox 97 05/26/21 04:07 - COMMENTS/OBSERVATIONS Free Text/Narrative:: no complaints-pleased with care-epidural
[2021-05-26] MEDS ORDERED: Prenatal Multivitamin with Calcium/Folic Acid/Iron Tab PO SCH (09:00)
== END 2021-05-26 16:25 | disposition home or self-care (01) | DRG 560 ==
LOC: JD.OBCHECK 08:02 → JD.OB 08:16 → OBSVTOIN 14:46 → JD.OB 14:47
PROVIDERS: ADMIT Obstetrics & Gynecology; ATTEND Obstetrics & Gynecology
PROC: 10E0XZZ Delivery of Products of Conception, External Approach (ICD-10-PCS; principal; 2021-05-25)
PROC: 10907ZC Drainage of Amniotic Fluid, Therapeutic from Products of Conception, Via Natural or Artificial Opening (ICD-10-PCS; 2021-05-25)
PROC: 3E0R3BZ Introduction of Anesthetic Agent into Spinal Canal, Percutaneous Approach (ICD-10-PCS; 2021-05-25)
PROC: 00HU33Z Insertion of Infusion Device into Spinal Canal, Percutaneous Approach (ICD-10-PCS; 2021-05-25)
DX: O62.3 Precipitate labor (principal); Z3A.38 38 weeks gestation of pregnancy; Z37.0 Single live birth; O99.284 Endocrine, nutritional and metabolic diseases complicating childbirth; E03.9 Hypothyroidism, unspecified; Z20.822 Contact with and (suspected) exposure to COVID-19
CPT/HCPCS: 36415; 51701; 59025; 59409; 85025; 86592; 86850; 86900; 86901; A9270-GY; J2590; J3010; J3490; J7120; U0002

== ENCOUNTER 2021-06-20 06:16 | Emergency (ER) | payer BC, MEDICAID ==
--- NOTE | 2021-06-20 07:30 | EDM.PDOC ---
ED HPI GENERAL MEDICAL PROBLEM - General Chief Complaint: Abdominal Pain Stated Complaint: JUANER ISREAL Time Seen by Provider: 06/20/21 07:29 - History of Present Illness INITIAL COMMENTS - FREE TEXT/NARRATIVE: 26-year-old female presents the emergency room with right upper quadrant pain. Patient is scheduled to see surgery over at [facility] I believe a week from today. Last evening she had pain develop in her right upper quadrant again. Patient's been started on PPI therapy thinking this might be dyspepsia but this is not seem to help. Patient was brought in by EMS where she received Toradol Zofran and Dilaudid. She is fairly comfortable at this time. The patient delivered 3 weeks ago she states that she had a single episode of discomfort early in her . And has not a couple of episodes after delivery. Patient denies any fevers or chills. 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: Musculoskeletal History: Reports: None Neurological History: Reports: None Psychiatric History: Reports: None Endocrine/Metabolic History: Reports: Hypothyroidism Hematologic History: Reports: None Immunologic History: Reports: None Oncologic (Cancer) History: Reports: None Dermatologic History: Reports: None Social & Family History - Family History Family Medical History: No Pertinent Family History - Tobacco Use Tobacco Use Status *Q: Never Tobacco User - Recreational Drug Use Recreational Drug Use: No ED ROS GENERAL - Review of Systems Review Of Systems: See Below Constitutional: Reports: No Symptoms HEENT: Reports: No Symptoms Respiratory: Reports: No Symptoms Cardiovascular: Reports: No Symptoms GI/Abdominal: Reports: Abdominal Pain, Nausea. Denies: Constipation, Diarrhea, Vomiting : Reports: No Symptoms Musculoskeletal: Reports: No Symptoms Skin: Reports: No Symptoms Neurological: Reports: No Symptoms ED EXAM, GENERAL - Physical Exam Exam: See Below Exam Limited By: No Limitations General Appearance: Alert, No Apparent Distress Head: Atraumatic, Normocephalic Neck: Normal Inspection, Supple, Non-Tender, Full Range of Motion Respiratory/Chest: No Respiratory Distress, Lungs Clear, Normal Breath Sounds Cardiovascular: Regular Rate, Rhythm, No Edema, No Murmur GI/Abdominal: Normal Bowel Sounds, Soft, Non-Tender, Other (She is nontender at the time of my exam) Back Exam: Normal Inspection. No: CVA Tenderness (L), CVA Tenderness (R) Course - Vital Signs Last Recorded V/S: Last Vital Signs Temp 36.7 C 06/20/21 07:15 Pulse 84 06/20/21 07:15 Resp 18 06/20/21 07:15 BP 113/78 06/20/21 07:15 Pulse Ox 97 06/20/21 07:15 - Orders/Labs/Meds Labs: Laboratory Tests 06/20/21 06/20/21 Range/Units 07:21 07:21 WBC 9.97 (3.98-10.04) K/mm3 RBC 4.62 (3.98-5.22) M/mm3 Hgb 13.6 D (11.2-15.7) gm/dl Hct 42.2 (34.1-44.9) % MCV 91.3 (79.4-94.8) fl MCH 29.4 (25.6-32.2) pg MCHC 32.2 (32.2-35.5) g/dl RDW Std Deviation 44.0 (36.4-46.3) fL Plt Count 166 L (182-369) K/mm3 MPV 12.1 (9.4-12.3) fl Neut % (Auto) 70.7 (34.0-71.1) % Lymph % (Auto) 20.4 (19.3-51.7) % [place] % (Auto) 4.8 (4.7-12.5) % Eos % (Auto) 3.1 (0.7-5.8) Baso % (Auto) 0.7 (0.1-1.2) % Neut # (Auto) 7.05 H (1.56-6.13) K/mm3 Lymph # (Auto) 2.03 (1.18-3.74) K/mm3 [place] # (Auto) 0.48 H (0.24-0.36) K/mm3 Eos # (Auto) 0.31 (0.04-0.36) K/mm3 Baso # (Auto) 0.07 (0.01-0.08) K/mm3 Sodium 138 (136-145) mEq/L Potassium 4.1 (3.5-5.1) mEq/L Chloride 105 (98-107) mEq/L Carbon Dioxide 24 (21-32) mEq/L Anion Gap 13.1 (5-15) BUN 13 (7-18) mg/dL Creatinine 0.8 (0.55-1.02) mg/dL Est Cr Clr Drug Dosing 79.00 mL/min Estimated GFR (MDRD) > 60 (>60) mL/min BUN/Creatinine Ratio 16.3 (14-18) Glucose 109 H (70-99) mg/dL Calcium 8.3 L (8.5-10.1) mg/dL Total Bilirubin 0.6 (0.2-1.0) mg/dL AST 17 (15-37) U/L ALT 29 (14-59) U/L Alkaline Phosphatase 78 (46-116) U/L Total Protein 7.1 (6.4-8.2) g/dl Albumin 3.7 (3.4-5.0) g/dl Globulin 3.4 gm/dL Albumin/Globulin Ratio 1.1 (1-2) Lipase 247 (73-393) U/L - Re-Assessments/Exams Free Text/Narrative Re-Assessment/Exam: 06/20/21 10:28 Patient's labs look assuring she is afebrile. Case reviewed with Dr. Shaw as per the labs. Dr. Shaw will try and get the patient worked into her clinic sooner on . We discussed using Bentyl for pain management however the patient is nursing so Bentyl is contraindicated we will give her a few Edwards. Departure - Departure Time of Disposition: 10:31 Disposition: Home, Self-Care 01 Clinical Impression: Cholelithiasis - Discharge Information Referrals: PCP,None [Primary Care Provider] - Forms: ED Department Discharge Additional Instructions: Return to the emergency room with any questions problems or worsening symptoms. You should be contacted by Dr. Mcbride office later today to try and schedule you for . I have sent a prescription to the [facility] for Edwards, this is a pain medication use 1 or 2 as needed for pain 3 times daily. Use caution when you use this medication allow 12 hours after using it before driving or returning to work. Sepsis Event Note (ED) - Evaluation Sepsis Screening Result: No Definite Risk - Focused Exam Vital Signs: Vital Signs Temp Pulse Resp BP Pulse Ox 06/20/21 07:15 36.7 C 84 18 113/78 97 06/20/21 06:21 36.3 C 91 15 113/78 95
== END 2021-06-20 11:05 | disposition home or self-care (01) ==
LOC: JD.ED 06:16
DX: K80.20 Calculus of gallbladder without cholecystitis without obstruction (principal); E03.9 Hypothyroidism, unspecified; Z79.899 Other long term (current) drug therapy
CPT/HCPCS: 36415; 80053; 83690; 85025; 99284

== ENCOUNTER 2021-10-15 16:58 | Emergency (ER) | payer BC, MEDICAID ==
[2021-10-15] MEDS ORDERED: Sodium Chloride 0.9% 10 ML Syringe FLUSH PRN (18:16)
[2021-10-15] MEDS ORDERED: Ketorolac 30 MG/ML SDV IVPUSH ONE (18:19)
[2021-10-15] MEDS ORDERED: Sodium Chloride 0.9% 1,000 ML IV STA (18:19)
[2021-10-15] MEDS ORDERED: Magnesium Citrate Solution 296 ML Bottle PO ONE (19:44)
== END 2021-10-15 20:08 | disposition home or self-care (01) ==
LOC: JD.ED 16:58
DX: R10.12 Left upper quadrant pain (principal); E03.9 Hypothyroidism, unspecified; Z79.899 Other long term (current) drug therapy; Z20.822 Contact with and (suspected) exposure to COVID-19
CPT/HCPCS: 36415; 71046; 74018; 80053; 83690; 84484; 85025; 85379; 86140; 87635; 96374; 99284; A9270; J1885; J7030; U0002

== ENCOUNTER 2024-06-17 21:39 | Emergency (ER) | payer BC, MEDICAID ==
[2024-06-17] MEDS: Lidocaine 1% 10 ML MDV INJECT ONE (23:30)
== END 2024-06-18 00:10 | disposition home or self-care (01) ==
LOC: JD.ED 21:39
DX: S67.196A Crushing injury of right little finger, initial encounter (principal); E03.9 Hypothyroidism, unspecified; Z90.49 Acquired absence of other specified parts of digestive tract; Z79.899 Other long term (current) drug therapy; W23.1XXA Caught, crushed, jammed, or pinched between stationary objects, initial encounter
CPT/HCPCS: 64450; 73140-26-F9; 73140-F9; 99283; 99283-25; J3490